=== PATIENT | female | born 1975 | race Hispanic/Latino ===

== ENCOUNTER 2020-01-15 18:07 | Emergency (ER) | payer BC, OTHER ==
[2020-01-15] MEDS ORDERED: Boostrix 0.5 ML (Tdap) VIAL ONE (19:00)
--- NOTE | 2020-01-15 19:11 | RAD ---
LEFT HAND THREE VIEWS: 01/15/20 No acute fracture was seen. An old ununited ulnar styloid process fracture is seen. The carpal bones appear normal, as do the metacarpals. IMPRESSION: No acute bony findings. POS: HOME
[2020-01-15] MEDS ORDERED: Bacitracin 1 PK ONE (19:23)
--- NOTE | 2020-01-15 19:33 | CT ---
CT OF THE THORACIC SPINE 01/15/[address] shows no fracture, dislocation, or disc space narrowing. Some very minor anterior os teophytes are beginning in the mid thoracic region. The visible portions of the lungs were clear with no gross contusion, pneumothorax, or pleural effusion. The soft tissues around the paraspinous regio n were unremarkable. IMPRESSION: No acute traumatic findings. Preliminary report called to Suzie in ER at 1843 on 01/15/20. POS: HOME
--- NOTE | 2020-01-15 20:21 | CT ---
CT OF THE CERVICAL SPINE: 01/15/20 Axial scanning followed by multiplanar reconstructions were presented. No fracture, dislocation, or s oft tissue swelling was seen at any cervical level. The C1 to dens distance is normal. There is sligh t disc space narrowing at C5-C6 with some beginnings of small osteophytes anteriorly. Findings by level follows: C1-C2: No acute findings. C2-C3: No acute findings. C3-C4: No acute findings. C4-C5: No acute findings. C5-C6: Moderate right foraminal narrowing due to osteophytes. C6-C7: Mild concentric bulge of the disc that slightly effaces the thecal sac but probably does not c ause any significant impingement. There is no central canal or foraminal stenosis. C7-T1: No acute findings. T1-T2: No acute findings. IMPRESSION: 1. No evidence of fracture or acute traumatic change. 2. Slight disc space narrowing at C5-C6. 3. Mild concentric bulge of the C6-C7 disc, more likely chronic than acute. Correlate with clini agatha symptoms. Preliminary report called to Suzie in ER at 1843 on 01/15/20. POS: HOME
== END 2020-01-15 19:35 | disposition home or self-care (01) ==
LOC: BURERS 18:07
DX: S16.1XXA Strain of muscle, fascia and tendon at neck level, initial encounter (principal); S29.012A Strain of muscle and tendon of back wall of thorax, initial encounter; S60.222A Contusion of left hand, initial encounter; S60.511A Abrasion of right hand, initial encounter; S60.811A Abrasion of right wrist, initial encounter; S50.811A Abrasion of right forearm, initial encounter; M25.551 Pain in right hip; M25.552 Pain in left hip; Z23 Encounter for immunization; V59.9XXA Occupant (driver) (passenger) of pick-up truck or van injured in unspecified traffic accident, initial encounter
CPT/HCPCS: 72125; 72128; 90471; 90715; G0390